=== PATIENT | female | born 1990 | race Caucasian/White ===

== ENCOUNTER → 2016-06-11 | Outpatient (CLI) | payer BC | LOC: COL.LAB 10:41 | DX: J02.8 Acute pharyngitis due to other specified organisms (principal) ==

== ENCOUNTER → 2016-12-04 | Outpatient (REF) | LOC: WSOH 16:00 | DX: Z02.89 Encounter for other administrative examinations (principal) ==

== ENCOUNTER → 2018-09-11 | Outpatient (CLI) | payer BC ==
[2018-09-11 07:03] LABS: HEMOGLOBIN 13.6 g/dl (12.5-16.0); MEAN CELL VOLUME 88 fl (80.0-100.0); MEAN CORPUSCULAR HEMOGLOBIN 30 pg (27.0-31.0); MEAN CORPUSCULAR HGB CONC 34 g/dl (33.0-37.0); MEAN PLATELET VOLUME 9.8 fl (7.4-10.4); PLATELET COUNT 275 K/mm3 (130-400); RED BLOOD COUNT 4.53 M/mm3 (4.10-5.30); REDCELL DISTRIBUTION WIDTH-CV 12.1 % (11.5-14.5)
[2018-09-11 07:19] LABS: ALBUMIN 4.2 gm/dL (3.5-5.0); BILIRUBIN,TOTAL 0.4 mg/dL (0.0-1.0); CALCIUM 9.2 mg/dL (8.4-10.2); CREATININE, serum 0.5 (0.52-1.25); POTASSIUM 4.3 mmol/L (3.4-5.0); TOTAL PROTEIN 7.3 gm/dL (6.4-8.2)
[2018-09-11 07:42] LABS: TSH w REFLEX 3.66 uIU/mL (0.465-4.680)
== END ==
LOC: COL.LAB 06:26
PROVIDERS: Nurse Practitioner
DX: Z01.89 Encounter for other specified special examinations (principal)

== ENCOUNTER → 2019-12-06 | Outpatient (CLI) | payer BC | LOC: COL.LAB 05:41 | DX: Z20.828 Contact with and (suspected) exposure to other viral communicable diseases (principal) ==

== ENCOUNTER 2020-03-16 04:05 | Inpatient (IN) | payer BC ==
[~2020-03-16] VITALS: Ht 162.6 cm; Wt 108.2 kg
[2020-03-16] VITALS (55 sets, daily range): BP systolic 103–173; BP diastolic 52–93; PULSE 64–121; TEMP 97.6–98.6
--- NOTE | 2020-03-16 04:15 | NUR ---
Pt arrived on unit ambulatory and with complaints of SROM around 0300. Pt denies any contractions or vaginal bleeding at this time and reports normal movement. EFM and toco monitors started. Vital signs WNL. SVE by this RN /4 with positive amnio-trace. Spoke with Dr. Galloway for an update on pt's arrival, SVE, ctx pattern and FHR tracing reviewed. Labor admission and pitocin augmentation orders received. Plan of care reviewed with pt and at the bedside. Both verbalized an understanding, agreed with the plan and state no questions or concerns at this time.
[2020-03-16] MEDS ORDERED: BENADRYL25 M2 PO (04:32)
[2020-03-16] MEDS ORDERED: PRENATAL (04:32)
[2020-03-16] MEDS ORDERED: TYLENOL 500MG500 MG PO (04:32)
[2020-03-16 05:52] LABS: BASO % 0.5 % (0.0-2.0); EOS # 0.2 (0.0-0.7); EOS % 2.1 % (0-4.0); GRAN # 5.3 (1.4-6.5); GRAN % 63.9 % (42.2-75.2); LYMPH % 24.1 % (20.0-51.0); MEAN CELL VOLUME 86 fl (80.0-100.0); MEAN CORPUSCULAR HEMOGLOBIN 29 pg (27.0-31.0); MEAN CORPUSCULAR HGB CONC 33 g/dl (33.0-37.0); MEAN PLATELET VOLUME 10.4 fl (7.4-10.4); MONO # 0.7 (0.1-0.6); PLATELET COUNT 219 K/mm3 (130-400); RED BLOOD COUNT 4.21 M/mm3 (4.10-5.30)
[2020-03-16 05:54] LABS: HEMATOCRIT 36.1 % (37.0-47.0)
--- NOTE | 2020-03-16 06:15 | NUR ---
0620 Assumed care of patient. Back to bed, heart monitor on. Hard to keep baby on monitor. This nurse holding ultra sound toco on.
--- NOTE | 2020-03-16 07:00 | NUR ---
Pitocin started at 2 lore units iv as ordered and per policy.
--- NOTE | 2020-03-16 07:15 | NUR ---
Rests in bed, alert. 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 Ultra sound toco held on by this nurse.
--- NOTE | 2020-03-16 08:15 | NUR ---
Rests in bed, alert. Dr. Hernandez at bedside. Visits with patient. States will be back to check on patient later.
--- NOTE | 2020-03-16 08:45 | NUR ---
Rests in bed, alert. Dr. Hernandez here, vag exam done. Reports dilated to one, and that cervix is thinning.
--- NOTE | 2020-03-16 11:00 | NUR ---
Rests in bed, alert. States contractions getting stronger. Denies any pain medication at this time.
--- NOTE | 2020-03-16 11:15 | NUR ---
Request epidural. Anesthesia notified of request.
--- NOTE | 2020-03-16 11:30 | NUR ---
Standing at bedside. Breathes through contractions.
--- NOTE | 2020-03-16 11:45 | NUR ---
Anesthesia here, visits with patient. See anesthesia notes please.
--- NOTE | 2020-03-16 12:00 | NUR ---
Lies down after epidural.
--- NOTE | 2020-03-16 14:30 | NUR ---
Rests in bed, alert. Talking on the phone. Denies any discomfort at this time.
--- NOTE | 2020-03-16 16:30 | NUR ---
[address] Hernandez called and notified of patient complete and this nurse will start pushing with patient. Dr. Hernandez states okay.
--- NOTE | 2020-03-16 16:45 | NUR ---
Pushing with patient, tolerates well.
--- NOTE | 2020-03-16 17:00 | NUR ---
Rests in bed, pushes with contractions.
--- NOTE | 2020-03-16 17:45 | NUR ---
Starting to push again with contractions. Tolerates well.
--- NOTE | 2020-03-16 18:00 | NUR ---
Continues to push with contractions. Tolerates well.
--- NOTE | 2020-03-16 18:15 | NUR ---
Dr. Hernandez here, pushes with patient. 1819 Kathleen relief nurse here.
--- NOTE | 2020-03-16 18:20 | NUR ---
1820- THIS RN AND DR. ABBASI TO BEDSIDE FOR DELIVERY/RELIEF OF DAYSHIFT NURSE. DR. ABBASI DOES ONE PRACTICE PUSH WITH PATIENT AND VERABLIZES TO CALL NURSERY NURSE AND BREAK DOWN THE BED FOR DELIVERY. NURSERY STAFF NOTIFIED AND ROOM BROKE DOWN FOR DELIVERY. 1835- OF VIABLE FEMALE INFANT. INFANT PLACED TO MOTHER ABDOMEN, WHERE NURSERY NURSE ASSUMES CARE AT THIS TIME. THIS RN STOPPED PITOCIN AT THIS TIME. 183- OF PLACENTA. PITOCIN RESTARTED PER PROTOCOL AT 333ML/HR. FUNDUS MASSAGED TO FIRM BY PROVIDER WITH MODERATE AMOUNT OF BLOOD NOTED. 1ST DEGREE LACERATION NOTED BY PROVIDER. EBL NOTED BY PROVIDER TO BE 300. 1845- PT. CLEANED UP, NEW CHUX PAD, PAD AND ICE PACK TO PERINEUM. BED AND ROOM CLEANED UP AND PUT BACK TOGETHER. VITALS TAKEN, FUNDUS FIRM, RECOVERY STARTED.
[2020-03-16] MEDS ORDERED: MOTRIN 800800 MG/TAB PO (21:33)
[2020-03-17 02:00] VITALS: BP 128/89; PULSE 103; TEMP 98
[2020-03-17 08:40] VITALS: BP 122/79; PULSE 108; TEMP 98
[2020-03-17 12:30] VITALS: BP 119/74; PULSE 112; TEMP 98.5
[2020-03-17 21:00] VITALS: BP 103/84; PULSE 87; TEMP 97.2
[2020-03-18 02:00] VITALS: BP 120/69; PULSE 98; TEMP 98.3
[2020-03-18 09:00] VITALS: BP 115/88; PULSE 74; TEMP 98.6
== END 2020-03-18 10:30 | disposition home or self-care (01) | DRG 807 ==
LOC: LDRO 04:05 → LDR 04:48 → OB 21:00
PROVIDERS: Obstetrics & Gynecology; ADMIT Student in an Organized Health Care Education/Training Program
PROC: 10E0XZZ Delivery of Products of Conception, External Approach (ICD-10-PCS; principal; 2020-03-16)
PROC: 0HQ9XZZ Repair Perineum Skin, External Approach (ICD-10-PCS; 2020-03-16)
DX: O99.214 Obesity complicating childbirth (principal); Z37.0 Single live birth; E66.9 Obesity, unspecified; O99.42 Diseases of the circulatory system complicating childbirth; O70.0 First degree perineal laceration during delivery; R00.0 Tachycardia, unspecified; Z3A.38 38 weeks gestation of pregnancy
CPT/HCPCS: J2590; J2795; J7120

== ENCOUNTER → 2020-03-28 | Outpatient (CLI) | payer BC ==
[~2020-03-28] MED LIST: BENADRYL25 M2 PO; MOTRIN 800800 MG/TAB PO; PRENATAL; TYLENOL 500MG500 MG PO
--- NOTE | 2020-03-28 15:16 | NUR ---
Pt, Bertha Walters, presents for outptatient consult with 10 day old baby girl, Debi Medeiros, and pt's spouse, Jeovany. Pt states baby is having latching problems and she has been supplementing with EBM and formula. Debi was born on [birth year] and weighed 8#5oz (3770 gms). She reports Debi's weight to be 7#6oz on 03/20 and 7#10.6oz on 03/[address] Fortune's office. Today Debi weighs 7#10oz (3460 gms). Pt having difficulty getting baby to latch, LC assists and pt instructed to handle baby and breast in cross cradle hold. Pt then assisted with with football hold and baby able to stay latched much better. After nursing bilaterally Debi had a weight gain 46gms. Pt recognizes this feeding is likely more effective with this feeding than others. POC: Three step plan with if able to latch Debi easily and correctly. Follow with supplementing 2-2.5oz EBM or formula, and then pump bilaterally to help improve milk supply. F/U: Friday at 1400. Questions invited and answered.
== END ==
LOC: LAC 13:47
DX: Z39.1 Encounter for care and examination of lactating mother (principal); Z71.89 Other specified counseling

== ENCOUNTER → 2020-04-07 | Outpatient (CLI) | payer BC ==
--- NOTE | 2020-04-07 15:35 | NUR ---
PT, Bertha Mala, presents for outpatient consult with 22 day old baby girl, Debi Medeiros, and pt's spouse, Jeovany. They were seen 10 days ago because Debi was not gaining weight well. It was determined that Bertha had low milk supply so she initiated the 3-step feeding plan with offering breast/bottle/pumping. Debi was 8#5oz at , 7#10oz ten days ago and today she weighs 8#2.3oz, for a gain of 8.3oz over over the last 10 days. Pt states Debi does not latch very regularly, maybe 1-2 times per day. She is then fed 2.5-3.2oz EBM or formula after , about every 3 hours. Pt pumps 7x per day and collects about 11-12 per 24 hours. She has been taking the herbal supplements commonly used to help improve milk supply but has not really seen an increase of the last 10 days. After latching independantly and nursing at this consult Debi had a weight gain of 32 gms. (1.1oz). She was then feed 2oz formula by bottle. LC discusses causes for low milk supply with pt, does not find any obvious reasons. POC: Pt will include 2 power pump sessions per day as well the current routine to continue to evaluate milk production. Pt will also increase bottle feedings to 3-3.5oz each feeding. F/U: Debi has an appointment with Dr. Fortune in 10 days. No follow up planned for LC at this time, but pt may schedule as desired. Questions invited and answered.
== END ==
LOC: LAC 13:55
DX: Z39.1 Encounter for care and examination of lactating mother (principal); Z71.89 Other specified counseling